=== PATIENT | male | born 1955 | race Caucasian/White ===

== ENCOUNTER → 2021-06-29 | Outpatient (CLI) | payer OTHER | LOC: COL.RAD 09:32 | DX: N43.3 Hydrocele, unspecified (principal); L72.9 Follicular cyst of the skin and subcutaneous tissue, unspecified ==

== ENCOUNTER → 2022-01-11 | Outpatient (CLI) | payer OTHER | LOC: COL.RAD 07:30 | DX: M47.813 Spondylosis without myelopathy or radiculopathy, cervicothoracic region (principal); M48.03 Spinal stenosis, cervicothoracic region | CPT/HCPCS: A9575 ==

== ENCOUNTER → 2022-09-06 | Outpatient (CLI) | payer OTHER | LOC: COL.RAD 10:33 | DX: N20.0 Calculus of kidney (principal); N40.0 Benign prostatic hyperplasia without lower urinary tract symptoms; N43.3 Hydrocele, unspecified | CPT/HCPCS: Q9967 ==

== ENCOUNTER 2023-12-19 13:33 | Inpatient (IN) | payer OTHER ==
[~2023-12-19] VITALS: Ht 182.9 cm; Wt 75.7 kg
[~2023-12-19 13:33] MED LIST: ASPIRIN 81M81 MG/TA2 PO; CEPHALEXIN500 M1 PO; FLOMAX 0.40.4 MG/CAP PO; NORCO 325 MG-7.1 TAB PO; PYRIDIUM 100MG100 MG PO
[2023-12-19] MEDS ORDERED: HYDROmorphone 0.5 MG/0.5 ML SYRINGE IV ONE ×3 (14:00→16:00)
[2023-12-19] MEDS ORDERED: Acetaminophen 325 MG TAB PO PRN (15:15)
[2023-12-19] MEDS ORDERED: Ondansetron 4 MG/2 ML VIAL IV PRN ×3 (15:15→19:30)
[2023-12-19] MEDS ORDERED: Docusate Sodium 100 MG CAP PO PRN ×2 (15:15→19:30)
[2023-12-19] MEDS ORDERED: Polyethylene Glycol 3350 17 GM PDS PO PRN (15:15)
[2023-12-19] MEDS ORDERED: Morphine 4 MG/ML VIAL IV PRN ×2 (15:15→19:30)
[2023-12-19] MEDS ORDERED: oxyCODONE 5 MG TAB PO PRN (15:15)
[2023-12-19 15:27] LABS: BASO % 0.2 % (0.0-2.0); EOS % 0.2 % (0.0-4.0); GRAN # 11.1 K/mm3 (1.4-6.5); GRAN % 86.1 % (42.2-75.2); HEMATOCRIT 41.9 % (42.0-52.0); HEMOGLOBIN 14.1 g/dl (13.5-18.0); LYMPH # 1.1 K/mm3 (1.2-3.4); LYMPH % 8.2 % (20.0-51.0); MEAN CELL VOLUME 87 fl (80.0-100.0); MEAN CORPUSCULAR HEMOGLOBIN 29 pg (27-31); MEAN CORPUSCULAR HGB CONC 34 g/dl (33.0-37.0); MEAN PLATELET VOLUME 10.8 fl (7.4-10.4); MONO # 0.6 K/mm3 (0.1-0.6); MONO % 4.8 % (1.7-9.3); PLATELET COUNT 205 K/mm3 (130-400); RED BLOOD COUNT 4.81 M/mm3 (4.20-5.60); REDCELL DISTRIBUTION WIDTH-CV 13.9 % (11.5-14.5)
[2023-12-19 15:45] LABS: ALBUMIN 3.7 g/dL (3.4-4.8); BILIRUBIN,TOTAL 0.6 mg/dL (0.2-1.2); CALCIUM 9.2 mg/dL (8.4-10.2); CREATININE, serum 1.02 mg/dL (0.72-1.25); POTASSIUM 3.9 mEq/L (3.5-4.5); TOTAL PROTEIN 6.1 g/dl (6.2-8.1)
[2023-12-19] MEDS ORDERED: LR 1,000 ML IV SCH ×2 (16:15→21:00)
[2023-12-19] MEDS ORDERED: Lidocaine PF 2% (20 MG/ML) 5 ML VIAL ONE ×2 (16:15→16:21)
[2023-12-19] MEDS ORDERED: fentaNYL 50 MCG/ML 2 ML VIAL ONE (16:20)
[2023-12-19] MEDS ORDERED: Ondansetron 4 MG/2 ML VIAL ONE (16:21)
[2023-12-19] MEDS ORDERED: Glycopyrrolate 0.2 MG/ML 1 ML VIAL ONE (16:21)
[2023-12-19] MEDS ORDERED: Midazolam 2 MG/2 ML VIAL ONE (16:21)
[2023-12-19] MEDS ORDERED: ePHEDrine 50 MG/ML VIAL ONE (17:41)
[2023-12-19] MEDS ORDERED: Topical Skin Adhesive 1 EACH (1 ML) TOP ONE (18:13)
[2023-12-19] MEDS ORDERED: hydrALAZINE 20 MG/ML 1 ML VIAL IV PRN (18:15)
[2023-12-19] MEDS ORDERED: HYDROmorphone 1 MG/1 ML SYRINGE [PACU/SDC ONLY] IV PRN (18:15)
[2023-12-19] MEDS ORDERED: fentaNYL 50 MCG/ML 1 ML SYRINGE/VIAL [PACU/SDC ONLY] IV PRN (18:15)
[2023-12-19] MEDS ORDERED: Magnes Hydrox (MOM) 80 MG/ML 30 ML CUP PO PRN (19:30)
[2023-12-19] MEDS ORDERED: Naloxone 0.4 MG/ML VIAL IV PRN (19:30)
[2023-12-19] MEDS ORDERED: diphenhydrAMINE 50 MG/ML 1 ML VIAL IV PRN (19:30)
[2023-12-19] MEDS ORDERED: Mag/Al Hydrox/Simeth Susp 30 ML CUP PO PRN (19:30)
[2023-12-19] MEDS ORDERED: diphenhydrAMINE 25 MG CAP PO PRN (19:30)
[2023-12-19 20:10] VITALS: BP 129/66; PULSE 82; TEMP 98.6
--- NOTE | 2023-12-19 20:10 | NUR ---
PT ADMITTED TO ROOM 324 FROM PACU, ALERT AND ORIENTED, DRESSING TO RIGHT HIP CDI, IVF INFUSING PER PIV. CMS INTACT TO RLE, NO REPORTS OF PAIN AT THIS TIME, MULT. FAMILY MEMBERS PRESENT IN ROOM, MED REC, ADMISSION ASSESSMENT AND INTAKE COMPLETED. PT ATTEMPTED ICE CHIPS, BUT HAVING SOME NAUSEA, ZOFRAN GIVEN PRIOR TO LEAVING PACU. CONTACTED ALEXEI WEINBERG, NEW ORDERS REC'D.
[2023-12-19 20:25] VITALS: BP 111/67; PULSE 81
[2023-12-19 20:40] VITALS: BP 123/74; PULSE 81
[2023-12-19] MEDS ORDERED: Melatonin 3 MG TAB PO PRN (21:00)
[2023-12-19] MEDS ORDERED: Cephalexin 500 MG CAP PO SCH (21:00)
[2023-12-19] MEDS ORDERED: ceFAZolin 2 G in Water For Injection,Sterile 20 ML IV SCH (21:01)
[2023-12-19] MEDS ORDERED: Scopolamine 1 MG Delivered 3-Day PATCH TD SCH (21:30)
[2023-12-19] MEDS ORDERED: Ketorolac 15 MG/ML VIAL IV SCH (22:00)
[2023-12-19] MEDS ORDERED: PROSCAR 5MG5 MG PO (22:53)
[2023-12-19 23:55] VITALS: BP 127/78; PULSE 80; TEMP 98.4
[2023-12-20] VITALS (12 sets, daily range): BP systolic 111–151; BP diastolic 65–76; PULSE 86–96; TEMP 98.1–98.8
[2023-12-20] MEDS ORDERED: ceFAZolin 2 G in Water For Injection,Sterile 20 ML IV SCH (01:40)
[2023-12-20 06:09] LABS: BASO % 0.1 % (0.0-2.0); GRAN # 11.5 K/mm3 (1.4-6.5); GRAN % 88.3 % (42.2-75.2); LYMPH # 0.9 K/mm3 (1.2-3.4); LYMPH % 6.7 % (20.0-51.0); MEAN CELL VOLUME 87 fl (80.0-100.0); MEAN CORPUSCULAR HGB CONC 34 g/dl (33.0-37.0); MEAN PLATELET VOLUME 11.6 fl (7.4-10.4); MONO # 0.6 K/mm3 (0.1-0.6); MONO % 4.6 % (1.7-9.3); PLATELET COUNT 220 K/mm3 (130-400); REDCELL DISTRIBUTION WIDTH-CV 14.1 % (11.5-14.5)
[2023-12-20 06:26] LABS: HEMATOCRIT 34.8 % (42.0-52.0); HEMOGLOBIN 11.7 g/dl (13.5-18.0); MEAN CORPUSCULAR HEMOGLOBIN 29 pg (27-31)
[2023-12-20 06:32] LABS: BILIRUBIN,TOTAL 0.6 mg/dL (0.2-1.2); CALCIUM 8.6 mg/dL (8.4-10.2); CREATININE, serum 1.35 mg/dL (0.72-1.25); POTASSIUM 4.8 mEq/L (3.5-4.5); TOTAL PROTEIN 5.1 g/dl (6.2-8.1)
--- NOTE | 2023-12-20 06:40 | NUR ---
Pt sleeping. Call light in reach.
--- NOTE | 2023-12-20 06:57 | NUR ---
NO FURTHER NAUSEA REPORTED AFTER MEDS LAST EVENING, IVF INFUSING PER PIV, PT ASKING FOR REGULAR DIET FOR BREAKFAST, HAS VOIDED USING URINAL. DSG TO RLE CDI, ICE PACK IN PLACE. PAIN CONTROLLED WITH IV TORADOL.
[2023-12-20] MEDS ORDERED: Aspirin 325 MG TAB PO SCH (09:00)
--- NOTE | 2023-12-20 09:02 | NUR ---
LITERATURE TEACHER met with pt bedside along with son Vaughn and daughter to discuss discharge planning and complete initial consult. Pt lives at home alone. PCP confirmed is Aj Bowen and DPOA-HC are daughters Socorro [phone] and Kirti. Son Vaughn is the only child living in [place] and would be the best POC for stay. Pt currently uses no medical equipment at home but does have shower bars, bathroom bars, and can live on the first level of the house. Pt reported had physical medical difficulties and the house is equipped from that. Pt has no concerns returning home. PT/OT has yet to see him. He would like to go home and has friends who are PTs that will help him at home. Not open to therapy at this time. Would like a DME order for a wheel chair. Pref. pharmacy [facility]. D/C plan: Home w/ DME but no therapy
[2023-12-20] MEDS ORDERED: Finasteride 5 MG TAB PO SCH (09:30)
--- NOTE | 2023-12-20 09:36 | NUR ---
Pt laying in bed. Family in room. A&Ox4. VSS. S1S2. Clear lungs on RA. ABD round, soft, non-tender with audible bowel sounds. Palpable pulses in all extremities. Pt stating pain 3/10, requesting pain meds. Pt agreeable to wait for Tordol IV. IV in L AC patent, no issues. CAll light in reach.
--- NOTE | 2023-12-20 10:36 | NUR ---
Pt to INT.
--- NOTE | 2023-12-20 13:47 | NUR ---
Data: Spiritual care visit attempted during Clerical Coordinator rounds. Patient has 3 visitors. Patient declined. Assessment: None. Patient declined. Plan of Care: Chaplains will remain available as requested while Patient is admitted to this hospital.
[2023-12-20] MEDS ORDERED: HYDROcodone/Acetaminophen 7.5-325 MG TAB PO PRN (14:30)
[2023-12-20] MEDS ORDERED: Acetaminophen 325 MG TAB PO PRN (16:45)
--- NOTE | 2023-12-20 18:25 | NUR ---
Pt requesting to stay ontop of pain mgmt. Have plan in place. No further needs at this time. call light in reach.
[2023-12-21] VITALS: BP_SYST 135
[2023-12-21 03:19] VITALS: BP 123/66; PULSE 79; TEMP 98.3
[2023-12-21 03:55] VITALS: BP_SYST 123
[2023-12-21 06:15] LABS: BASO % 0.2 % (0.0-2.0); EOS # 0.1 K/mm3 (0.0-0.7); EOS % 0.7 % (0.0-4.0); GRAN # 7.2 K/mm3 (1.4-6.5); GRAN % 72.4 % (42.2-75.2); MEAN CORPUSCULAR HGB CONC 33 g/dl (33.0-37.0); MEAN PLATELET VOLUME 11.4 fl (7.4-10.4); MONO # 0.6 K/mm3 (0.1-0.6); MONO % 6.3 % (1.7-9.3); PLATELET COUNT 155 K/mm3 (130-400); RED BLOOD COUNT 3.14 M/mm3 (4.20-5.60); REDCELL DISTRIBUTION WIDTH-CV 14.3 % (11.5-14.5)
[2023-12-21 06:31] LABS: HEMATOCRIT 27.6 % (42.0-52.0); HEMOGLOBIN 9.2 g/dl (13.5-18.0); MEAN CELL VOLUME 88 fl (80.0-100.0); MEAN CORPUSCULAR HEMOGLOBIN 29 pg (27-31)
[2023-12-21 06:38] LABS: ALBUMIN 2.9 g/dL (3.4-4.8); BILIRUBIN,TOTAL 0.5 mg/dL (0.2-1.2); CALCIUM 8.1 mg/dL (8.4-10.2); CREATININE, serum 1.17 mg/dL (0.72-1.25); POTASSIUM 4.4 mEq/L (3.5-4.5); TOTAL PROTEIN 4.9 g/dl (6.2-8.1)
--- NOTE | 2023-12-21 07:21 | NUR ---
Pt in bathroom. No needs at this time.
--- NOTE | 2023-12-21 07:36 | NUR ---
Pt is A&Ox4. VSS. S1S2 on tele. Clear lungs on RA. ABD round, soft, non-tender with audibel bowel sounds. Palpable pulses in all extremities. 4/5 strength. Pt reporting pain 6/10 while moving to and from the bathroom. Administered pain meds. Pt denies n/v, headache, dizziness. Drainage present on upper R hip dressing. Marked outline with pen to monitor. Lower R hip dressing, CDI. INT in L AC patent, no issues. TEDS on bilaterally and ice pack on R hip. No further needs. Call light in reach.
[2023-12-21 07:44] VITALS: BP 134/70; PULSE 79; TEMP 98.2
[2023-12-21 08:44] VITALS: BP_SYST 134
--- NOTE | 2023-12-21 09:29 | NUR ---
Changed dressing on R upper hip due to bloody drainage. Pt's incison is intact. 4 steristrips were loose and peeled off with dressing. 3 still on incision. Cleaned area with gauze. Fresh aquacell in place. Will continue to monitor for any bleeding. No further needs. Call light in reach.
--- NOTE | 2023-12-21 12:18 | NUR ---
[employer] faxed DME order for a front wheeled walker and Wheelchair, per request of family, to [facility]. Pt is d/c today or tomorrow. D/C Home w/ DME
[2023-12-21 12:24] LABS: HEMATOCRIT 30.3 % (42.0-52.0)
[2023-12-21] MEDS ORDERED: ASPIRIN 32325 MG/TAB PO (12:51)
[2023-12-21] MEDS ORDERED: NORCO 325 MG-7.1 TAB PO (12:55)
--- NOTE | 2023-12-21 13:03 | NUR ---
TEXTILE MACHINE MAINTENANCE MECHANIC contacted [facility] to schedule corn picker for DME. TEXTILE MACHINE MAINTENANCE MECHANIC was notified that [employer] only goes to the office on weekends for life threatening emergencies but could help them Friday at 9am. TEXTILE MACHINE MAINTENANCE MECHANIC notified family and they want to corn picker the equipment this weekend. TEXTILE MACHINE MAINTENANCE MECHANIC called [facility] and sent a referral to them.
--- NOTE | 2023-12-21 13:45 | NUR ---
D/C'ed Pt's IV from L AC. Pressure bandage applied. Removed tele monitor. Educated Pt on Discharge infromation and education. Answered Pt and family questions. Pt waiting in room for walker to arrive.
--- NOTE | 2023-12-21 14:10 | NUR ---
Pt transported to vehicle via WC by PCT.
--- NOTE | 2023-12-22 09:38 | NUR ---
FINA recieved a call from Lucille with [facility] confirming if pt still needs the DME. FINA advised it appears that the DME was ordered by another company.
== END 2023-12-21 14:15 | disposition home or self-care (01) | DRG 481 ==
LOC: COL.ER 13:33 → SURG 16:40 → COL.ER 16:40 → SURG 12-21 14:15
PROVIDERS: Nurse Practitioner; Orthopaedic Surgery; ADMIT Hospitalist
PROC: 0QS606Z Reposition Right Upper Femur with Intramedullary Internal Fixation Device, Open Approach (ICD-10-PCS; principal; 2023-12-19 17:00)
DX: S72.141A Displaced intertrochanteric fracture of right femur, initial encounter for closed fracture (principal); N17.9 Acute kidney failure, unspecified; G89.29 Other chronic pain; M25.511 Pain in right shoulder; M54.9 Dorsalgia, unspecified; N40.0 Benign prostatic hyperplasia without lower urinary tract symptoms; M75.41 Impingement syndrome of right shoulder; I48.91 Unspecified atrial fibrillation; V80.010A Animal-rider injured by fall from or being thrown from horse in noncollision accident, initial encounter; Y93.52 Activity, horseback riding; Y92.89 Other specified places as the place of occurrence of the external cause; Z79.899 Other long term (current) drug therapy
CPT/HCPCS: A6197; C1713; C1769; J0688; J0780; J1170; J1885; J2250; J2405; J2704; J3010; J7120